=== PATIENT | male | born 1950 | race Caucasian/White ===

== ENCOUNTER 2019-06-24 12:29 | Emergency (ER) | payer OTHER ==
[~2019-06-24] VITALS: Ht 188 cm; Wt 113.4 kg
--- NOTE | 2019-06-24 12:30 | NUR ---
Patient to ER bed 08 to gown for evaluation. Side rails up.
--- NOTE | 2019-06-24 12:35 | NUR ---
Pt brought by self, A&Ox4, pt presents to ER with L knee, L ankle pain after mechanical fall two days ago, pt states he was going downstairs and he slipped and fell , no bleeding noted, will cont to monitor.
[2019-06-24 12:38] VITALS: BP_SYST 205
--- NOTE | 2019-06-24 12:54 | NUR ---
Dr Price at bedside examining patient
[2019-06-24 14:15] VITALS: BP_SYST 172
--- NOTE | 2019-06-24 14:18 | NUR ---
Patient given written and verbal discharge instructions and verbalizes understanding. ER MD discussed with patient the results and treatment provided. Patient in stable condition. ID arm band removed. Rx of Motrin given. Patient educated on pain management and to follow up with PMD. Pain Scale 4/10 tolerable for patient. Opportunity for questions provided and answered. Medication side effect fact sheet provided.
== END 2019-06-24 14:18 | disposition home or self-care (01) ==
LOC: SED 12:29
DX: S82.832A Other fracture of upper and lower end of left fibula, initial encounter for closed fracture (principal); R03.0 Elevated blood-pressure reading, without diagnosis of hypertension; F17.290 Nicotine dependence, other tobacco product, uncomplicated; W01.0XXA Fall on same level from slipping, tripping and stumbling without subsequent striking against object, initial encounter; Y93.89 Activity, other specified; Y92.89 Other specified places as the place of occurrence of the external cause; Y99.8 Other external cause status
CPT/HCPCS: 99283